=== PATIENT | female | born 1945 | race Caucasian/White ===

== ENCOUNTER → 2020-02-01 15:31 | Outpatient (CLI) | payer MEDICARE, SELFPAY ==
[2020-02-01 15:57] LABS: Basophils % 0.6 % (0.1-2.0); Eosinophils # 0.2 K/mm3 (0.0-0.4); Eosinophils % 2.3 % (0.1-12.0); Hematocrit 43.7 % (37.0-47.0); Hemoglobin 15.3 g/dL (12.2-16.2); Lymphocytes # 2.1 K/mm3 (0.7-4.5); Lymphocytes % 31.6 % (10-50); Mean Corpuscular HGB Conc 35.1 g/dL (31.8-35.4); Mean Corpuscular Hemoglobin 30.7 pg (27.0-31.2); Mean Corpuscular Volume 87.5 fl (81-99); Mean Platelet Volume 8.3 fl (7.4-10.4); Monocytes # 0.4 K/mm3 (0.1-1.0); Monocytes % 5.4 % (1.7-9.3); Platelet Count 245 K/mm3 (142-424); Red Cell Distribution Width 13.5 % (11.5-17.5); White Blood Count 6.7 K/mm3 (4.8-10.8)
[2020-02-03 22:36] LABS: Covid-19 Nasal PCR Sendout Lex Not Detected
== END ==
PROVIDERS: PCP Family Medicine; Visit Provider Nurse Practitioner Family
DX: Z03.818 Encounter for observation for suspected exposure to other biological agents ruled out (principal)
CPT/HCPCS: 36415; 85025; U0004

== ENCOUNTER → 2020-03-04 10:45 | Outpatient (CLI) | payer MEDICARE, SELFPAY ==
[2020-03-04 12:55] LABS: Coronavirus 19 IgG Antibody Negative (Negative); Coronavirus 19 IgM Antibody Negative (Negative)
== END ==
PROVIDERS: Visit Provider Internal Medicine Gastroenterology
DX: Z01.89 Encounter for other specified special examinations (principal); Z12.11 Encounter for screening for malignant neoplasm of colon
CPT/HCPCS: 36415; 86328

== ENCOUNTER 2020-03-06 08:05 | Day surgery (SDC) | payer MEDICARE, SELFPAY ==
[2020-03-01 10:56] VITALS: BMI 28.3
[2020-03-06] VITALS (7 sets, daily range): BP systolic 91–139; BP diastolic 52–94; PULSE 68–96; RESP 18; TEMP 36.4–36.6; O2SAT 94–99
--- NOTE | 2020-03-06 09:00 | HMH.ANESCL ---
[facility] Anesthesia Checklist - Structural Data Admitted From: Home Planned Operative Procedure/s: colonoscopy Consent for Planned Operative Procedure(s) Verified: Yes - Additional verifications Anesthesia Reactions: No Hx Blood Transfusions: No Blood Transfusion Reaction: No - Airway Assessment C-Spine Mobility Assessed: Yes TMJ Mobility Assessed: Yes Dentition: Partials - Neurological Assessment Level of Consciousness: Awake, Alert, Appropriate - Anesthesia Plan Anesthesia Risk discussed: Yes Anesthesia Plan: Verified ASA Class: II Anesthesia Type: MAC [facility] History I have reviewed the patient's past medical history: Yes Medical History: Reports:: Hyperlipidemia Denies:: Cancer, Diabetes Mellitus Type 1, Diabetes Mellitus Type 2, Internal Pacemaker, Lung Disease, MRSA, Seizures *Have you ever received a pneumonia vaccine?: Yes *Have you received a flu vaccine this season?: No Other Medical History: Denies: Blood Transfusion Reaction Anesthesia experience/problems:: none Other Surgeries: Yes: Appendectomy, Cholecystectomy, Colonoscopy, Dilation and Curettage. No: Pacemaker Amputation: No Fractures: No - *Social History Alcohol Intake: never Substance Use Type: denies use *Occupational Status:: retired Housing: house Household Members: spouse *Travel in the last 8 weeks: None Family Hx:: Unable to obtain
--- NOTE | 2020-03-06 09:22 | HMH.PROC ---
[facility] Procedure Note Procedure Note:: Colonoscopy Procedure Report: Colonoscopy with cold snare polypectomy Endoscopist: Willie Pugh II, MD Referring physician: Ilir Sandhu MD Date of Procedure: March 06, 2020 Equipment: Olympus 180 variable stiffness pediatric colonoscope Sedation: MAC sedation Indication: Mrs. Cifuentes is a 74-year-old female who is here for follow-up screening/surveillance colonoscopy secondary to a personal history of colon polyps. The patient had a colonoscopy 7 years ago and had a couple of polyps removed. Her last colonoscopy with ga in October 2017 revealed 9 colon polyps ranging in size from 5 to 19 mm all of which were adenomatous. She reports no abdominal pain, weight loss, change in her bowel habits or rectal bleeding. She reports no family history of colon cancer. She does take Metamucil daily. Procedure: Prior to the procedure, a history and physical exam was performed, and patient's medications and allergies were reviewed. The risks, benefits and alternatives of the sedation and procedure were discussed with the patient. All questions were answered and informed consent was obtained. The patient was brought to the procedure room. Patient identification and proposed procedure were verified by the physician and the nurse. The patient was placed in a left lateral decubitus position and the scope was passed under direct vision. Throughout the procedure, the patient's blood pressure, pulse, and oxygen saturations were monitored continuously. The colonoscopy was accomplished without difficulty. The patient tolerated the procedure well. Findings: On digital rectal examination there was normal rectal tone. There were no external hemorrhoids. The colonoscope was introduced through the anal canal to the rectum and advanced to the cecum. The ileocecal valve and appendiceal orifice were identified. The scope was advanced a short distance into the ileum which appeared grossly normal. The scope was then withdrawn into the colon. The cecum was normal. There were 3 polyps (ascending x1 (9 mm), transverse x1 (3 to 4 mm) and descending x1 (4 to 5 mm)) which were all removed via cold snare polypectomy. There were scattered diverticuli throughout the descending and sigmoid colon (LEFT colon). The rectum itself was normal. Upon retroflexion within the rectum there were grade 1 internal hemorrhoids. The preparation was excellent throughout with Rector Preparation Score of 9. The cecal time was 11 minutes. Impression: 1. Colonic polyps x3 2. Left-sided diverticulosis 3. Grade 1 internal hemorrhoids Plan: I will follow up the polyp pathology and recommend repeat colonoscopy again in 5 years based upon the polyp histology. I would encourage fiber supplementation on a long-term daily maintenance basis.
== END 2020-03-06 10:20 | disposition home or self-care (01) ==
PROVIDERS: PCP Family Medicine; Visit Provider Internal Medicine Gastroenterology
PROC: 0DJD8ZZ Inspection of Lower Intestinal Tract, Via Natural or Artificial Opening Endoscopic (ICD-10-PCS; CPT 45378; principal; 2020-03-06 09:00)
DX: Z12.11 Encounter for screening for malignant neoplasm of colon (principal); Z86.010 Personal history of colon polyps; K63.5 Polyp of colon; K57.30 Diverticulosis of large intestine without perforation or abscess without bleeding; K64.0 First degree hemorrhoids; E78.5 Hyperlipidemia, unspecified; Z90.49 Acquired absence of other specified parts of digestive tract
CPT/HCPCS: 45385; 88305

== ENCOUNTER → 2021-11-05 09:41 | Outpatient (CLI) | payer MEDICARE, SELFPAY ==
--- NOTE | 2021-11-05 09:48 | XR_ITS ---
FINAL REPORT CLINICAL HISTORY: PAIN IN LEFT KNEE FINDINGS: LEFT KNEE Three views of the left knee reveal no evidence of fracture or dislocation. The bony alignment is normal. There are mild degenerative changes. There is no evidence of joint effusion. No localized soft tissue abnormality is seen. IMPRESSION: Mild degenerative change with no acute abnormality identified. Reviewed, Interpreted and Dictated by Ernesto Parsons III, MD Transcribed by Felecia Anthony Authenticated and [facility]
== END ==
PROVIDERS: PCP Family Medicine; Visit Provider Family Medicine
DX: M25.562 Pain in left knee (principal)
CPT/HCPCS: 73562

== ENCOUNTER 2024-11-15 13:31 | Outpatient (CLI) | payer MEDICARE, SELFPAY ==
--- NOTE | 2024-11-15 13:34 | XR_ITS ---
FINAL REPORT TECHNIQUE: Bone densitometry calculations of the lumbar spine and bilateral hips were obtained. CLINICAL HISTORY: SCREENING COMPARISON: None FINDINGS: Using L1-4, the bone mineral density of the spine is 1.212 g/cm2, corresponding to T-score of 1.5. Using the left hip, the bone mineral density of the femoral neck is 0.701 g/cm2, corresponding to a T-score of -2.0. Using the right hip, the bone mineral density of the femoral neck is 0.738 g/cm?, corresponding to a T-score of -1.7. NOTE: T-score: Standard deviation compared with peak bone mass of young adult mean. *Following the recommendations of the International Society of Bone densitometry, classification of hip BMD is based on the lower of two T-scores; total hip or femoral neck. IMPRESSION: Diminished bone mineral density of the bilateral hips consistent with osteopenia. Normal bone mineral density of the lumbar spine. Reviewed, Interpreted and Dictated by Live Sepulveda MD Transcribed by Ani Hobbs Authenticated and [facility]
--- OUTSIDE RECORDS SUMMARY | 2024-11-15 13:34 | XMS_ITS ---
Author Organization Unknown TREATMENT PLAN [facility] Start Date Provider Encounter for Check-up [id number] [facility]
--- OUTSIDE RECORDS SUMMARY | 2024-11-15 13:34 | XMS_ITS | Data Portability ---
Author Organization [facility] ClinSIMONE fernandezS [facility] CLOSED Address [address] [place] [address] Care Team Providers Care Pot Washer Name Role Phone SIN WORTHY Primary Care Provider [phone] CHANDA GARCÍA Supply Chain Intern Assessment No assessment recorded. Plan of Treatment Reminders Order Date Submit Date Provider Last Modified By Organization Details Last Modified Time Details Appointments None record ed. Lab None record ed. Referral None record ed. Procedures None record ed. Surgeries None record ed. Imaging None record ed. Medication Orders None record ed. Patient TargetsNo targets recorded. Patient InstructionsNo instructions recorded. Reason for Referral None Reported. Medical Equipment None Reported. Allergies Allergen ID Allergen Name Allergen Category Reaction Reaction Severity Criticality Documentation Date Start Date Code Code System Note Provider Name and Address Organization Details Recorded Time 274722 Product containin g penicilli n (product) medicatio n Not available Not available Not available 10/09/2023 13421 8001 SNOMED [facility] 4 13:06:59 Medications Name Sig Start Date Stop Date Status Note LastModified by Organization Details LastModified Time atorvastatin active Not Available Not Available Not Available Zyrtec active Not Available Not Availa ble Not Available Vitals None Recorded Social History None recorded. Functional Status None recorded. Mental Status None recorded. Family History Nothing Reported. Medical History No medical history recorded. Gynecological HistoryNo gynecological history recorded. Obstetrics History GPAL:G 0 P 0 0 0 0 Past Encounters Encounter ID Performer Location Encounter Start Date Encounter Closed Date Diagnosis/Indication Diagnosis SNOMED-CT Code Diagnosis ICD10 Code Diagnosis Note [id number] CHANDA GARCÍA MD [address] [place] [address] 10/09/2023 12:53:54 10/10/2023 04:19:14 Seborrheic keratosis 644399662 L82.1 - Benign overgrowth s of skin- Hereditary Senile angioma 7728824 I 78.1 benign Solar lentigo 37185643 L 81.4 benign Health Concerns Section Related Observation LastModified by Organization Detai ls LastModified Time None Recorded Concern Status LastModified by Organization Details LastModified Time None Recorded Advance Directives Directive None Recorded Payers Insurance Date Sequence Insurance Name Policy Number Policy Junior Covered Member ID Junior Member ID Guarantor Name 10/09/2023 1 [employer] (MEDICARE REPLACEMENT/A DVANTAGE - PPO) Thais Cifuentes [id number] Thais Cifuentes Notes Date Note Type Note Provider Name and Address Organization Details Recorded Time 10/09/2023 text/html growing spot on L inframammary CHANDA GARCÍA MD [address] [place], [address], [facility] 10/09/2023 13:37:01 OBGyn Episode No OBEpisode recorded.
--- OUTSIDE RECORDS SUMMARY | 2024-11-15 13:34 | XMS_ITS | Clinical Summary ---
Author Organization [facility] Address [address] [place] [address] Care Team Providers Care Environmental Designer Name Role Phone Ilir Sandhu MD Primary Care Provider [phone] Social History Tobacco Use Types Packs/Day Years Used Date Smoking Tobacco: Never Assessed Comments Unknown Sex and Gender Information Value Date Recorded Sex Assigned at Female 12/01/2023 12:27 PM EDT Legal Sex Female 6:42 PM EDT Gender Identity Female 12/01/2023 12:27 PM EDT Sexual Orientation Not on file Plan of Treatment Upcoming Encounters Date Type Department Care Team (Late st Contact Info) Description 11/30/2024 9:00 AM EDT Ovarian Cancer Screening [facility] Gynecology [address] [place] [address] Health Maintenance Due Date Last Done Comments [facility]-Bone Density Scan 1947 [facility]-Depression Screening 1947 [facility]-Hepatitis C Screening 1945 [facility]-/Child/Adol SDOH Screenings 1947 [facility]- SDOH Screenings 1965 [facility]-Adult SDOH Screenings 1965 [facility]-DTaP,Tdap,and Td Vaccines (1 - Tdap) 1966 [facility]-Zoster Vaccines (1 of 2) 1997 [facility]-RSV Vaccine: 60+ Years or (1 - 1-dose 75+ series) 2022 [id number]-06 Vaccine ( season) 2024 02/09/2024, 02/14/2022, 10/10/2021 [facility]-Pneumococcal Vaccine: 50+ Years Completed 04/21/2017, 04/19/2016 [facility]-Breast Cancer Screening Discontinued 10/10/2023, 10/10/2023, 09/30/2022, Additional history exists [facility]-Influenza Vaccine Completed 02/09/2024 , 03/04/2023, 03/12/2022, Additional history exists HPV Vaccines Aged Out No longer eligi ble based on patient's age to complete this topic [facility]-HIB Vaccines Aged Out No longer e ligible based on patient's age to complete this topic [facility]-Hepatitis A Vaccines Aged Out No longer eligible based on patient's age to complete this topic [facility]-IPV Vaccines Aged Out No longer e ligible based on patient's age to complete this topic [facility]-Rotavirus Vaccines Aged Out No lo nger eligible based on patient's age to complete this topic Care Teams Environmental Designer Relationship Specialty Start Date End Date Ilir Sandhu MD [facility] [facility] [address] [place] [address] PCP - General 10/13/20
--- OUTSIDE RECORDS SUMMARY | 2024-11-15 13:34 | XMS_ITS | Patient Health Record ---
Author Organization [facility] Address [address] [place] [address] Care Team Providers Care Mathematics Technician Name Role Phone Kari Bustos Unavailable [phone] Allergies Allergen (clinical drug ingredient) Drug/Non Drug Allergy documented on EMR Reaction Allergy Type Onset Date Status PENICILLIN V POTASSI UM (PENICILLIN V POTASSIUM TAB rash Drug Allergy 03/01/2013 Active Results Component Value Reference Range Notes Pap w/reflex HPV Reviewed date:12/18/2023 03:03:29 PM Interpretation: Performing Lab:[facility] [place] [facility] [place] [facility] [place] CLIA ID [id number], [address], [address], [place] [address], Director - Ara Brown MD Notes/Report: Any Nucleic Acid Amplification testing is performed on the [email or web address] [place]. Diagnosis: Negative for intraepithelial lesion or malignancy. AP results FINAL .NET ARCHITECT CYTOLOGY REPORT DIAGNOSIS: Negative for intraepithelial lesion or malignancy. Specimen Adequacy: Satisfactory for interpretation with endocervical/transformat ion zone component present. Pertinent Clinical History/History of Surgery: Not provided Collection Technique: [place]-Spatula Results of Last Pap: negative LMP: unknown Date of Last Pap: Not provided Specimen Source: Cervical/Endocervical Specimen Type: ThinPrep Other Gynecological Patient Information: Menopausal Recommendation: Follow-up based on current clinical guidelines and/or clinical consideration. Screening note: This specimen has been analyzed by the [employer] Imaging System, an interactive computer system which assists the lab in screening of ThinPrep Pap Test slides. Following imaging, the slide was reviewed by a Sausage Grinder and/or Pathologist. Negative Educational Note: The pap screening test aids in the detection of premalignant and malignant states of the cervix. False positive and negative results may occur. It is not a diagnostic test. If abnormal cells are reported, follow-up based on current clinical guidelines and/or clinical consideration is recommended. Shivani Sheridan Sausage Grinder CPT Codes: 42374 ICD Codes: Z01.419 Reason For Referral No Information Medications Medication SIG (Take, Route, Frequency, Duration) Notes Start Date End Date Status ZyrTE Active Atorvastatin Calcium 40 MG Tablet Oral; Duration: 90 Active Social History Tobacco Use: Social History Observation Description Date Details (start date - stop date) Former Smoker NA - NA Sex Assigned At : Social History Observation Description Sex Assigned At Female Social History Drugs/Alcohol: Social Info Question Answer Notes Drugs Have you used drugs other than those for medical reasons in the past 12 months? No Alcohol Screen Did you have a drink containing alcohol in the past year? Yes How often did you have a drink containing alcohol in the past year? Monthly or less (1 point) How many drinks did you have on a typical day when you were drinking in the past year? 1 or 2 drinks (0 point) How often did you have 6 or more drinks on one occasion in the past year? Never (0 point) Points 1 Interpretation Negative Tobacco Use: Social Info Question Answer Notes Tobacco Use/Smoking Are you a former smoker Problems Problem Type SNOMED Code ICD Code Onset Dates Problem Status W/U Status Risk Notes Problem Gynecological examination normal (070207049092702 ) Cervical smear, as part of routine gynecological examination (Z01.419) 11/08/19 20 Active confirmed Annual without abnormal findings Problem Menopause (018448635) *Menopausal and female climacteric states (Code also, associated symptoms) (N95.1) Active confirmed Vital Signs Blood pressure diastolic 76 mm Hg 12/15/2023 Height 64 in 12/15/2023 Blood pressure systolic 128 mm Hg 12/15/2023 Weight 172.4 lbs 12/15/2023 BMI 29.59 kg/m2 12/15/2023 Encounters Encounter Location Date Provider Diagnosis [facility] [address] [place] [address] 12/08/2023 Kari Bustos [facility] [address] [place] [address] 12/15/2023 Kari Bustos Cervical smear, as p art of routine gynecological examination Z01.419 Assessments Encounter Date Diagnosis (ICD Code) Assessment Notes Treatment Notes Treatment Clinical Notes Section Notes 12/15/2023 Cervical smear, as part of routine gynecological examination (ICD-10 - Z01.419) Plan Of Treatment Next Appt Details Provider Name:Kari Bustos, 12/17/2024 10:15:00 AM, [address] [address], [place], [address], Insurance Providers Payer Name Payer Address Payer Phone Subscriber Number Group Number Insured Name Patient Relationship to Insured Coverage Start Date Coverage End Date [employer] [address] [address] [place], [place] [id number] [phone] [id number] Thais Cifuentes Self - patient is the insured 2 Medical (General) History Medical History History ICD Code hypercholeterolemia Surgical History Surgery Date(Month/Year) appy 1960; cholecystectomy 1979 Hospitalization History Reason Date(Month/Year) childbirth
== END 2024-11-15 23:59 | disposition home or self-care (01) ==
LOC: RAD 13:32
PROVIDERS: PCP Family Medicine; Visit Provider Family Medicine
DX: M85.852 Other specified disorders of bone density and structure, left thigh (principal); M85.851 Other specified disorders of bone density and structure, right thigh; M85.80 Other specified disorders of bone density and structure, unspecified site; Z13.9 Encounter for screening, unspecified
CPT/HCPCS: 77080

== ENCOUNTER 2025-01-06 07:28 | Day surgery (SDC) | payer MEDICARE, SELFPAY ==
[2024-12-28 10:19] VITALS: BMI 29.2
--- NOTE | 2025-01-06 07:14 | EXP.HP ---
History of Present Illness *Admission Date: 01/06/25 *History of present illness: Mrs. Cifuentes is a 79-year-old female who is here for diagnostic EGD and screening/surveillance colonoscopy. The patient does report dysphagia for the last couple of years that has progressively worsened. This is to solid foods. She does have a personal history of adenomatous colon polyps. Her colonoscopy 12 years ago revealed a couple of polyps which were removed. Her colonoscopy in October 2017 revealed 9 polyps ranging in size from 5 to 19 mm (tubular adenomas x 9) which were removed. Her last colonoscopy with me in March 2020 revealed 3 polyps (tubular adenomas x 3) which were removed. The examination is deemed medically necessary for EGD and surveillance colonoscopy. The patient has been seen, interviewed and examined prior to the procedure by both myself and the anesthesia provider. [facility] Disclaimer: The information contained in this section may have been updated after the patient was seen, as this information can be updated by other users. Medical History Hearing loss Allergies High cholesterol Surgical History History of appendectomy History of cholecystectomy Family History Mother Hyperlipidemia Family/Other Diabetes Social History Smoking Status: Former smoker tobacco type: cigarettes packs per day: 1 pack-years: 25 quit status: quit date established alcohol intake: never substance use type: denies use current occupational status: retired Travel in the last 8 weeks?: None household members: spouse housing: house current occupational exposures/hazards: No caffeine: Yes Have you lived/traveled outside US in past 30 days?: No Contact w/someone who lives/traveled outside US past 30 days?: No Exposure to someone with infectious disease in past 14 days?: No Do you have a fever (greater than 100.4 F or 38 C)?: No Have you tested positive for COVID-19?: No Exposed to someone with COVID-19 in past 14 days?: No Do you have a sore throat?: No Do you have a cough?: No Do you have any weakness?: No Do you have any diarrhea?: No Are you experiencing any unusual bleeding?: No Do you have any muscle aches/pain?: No Do you have any abdominal pain?: No Are you experiencing loss of taste or smell?: No Other Medical History Have you received the Flu Vaccine for this season: No Have you received the Pneumonia Vaccine: Yes Review of Systems Review of Systems Review of systems (narrative): Negative *Cardiovascular Comments: Negative *Gastrointestinal Comments: Negative *Genitourinary Comments: Negative *Musculoskeletal Comments: Negative *Neurologic Comments: Negative Meds Home Medications and Allergies Home Medications ?Medication ?Instructions ?Recorded ?Confirmed ?Type atorvastatin 40 mg tablet 40 mg PO DAILY Cholesterol 11/25/17 01/04/25 History cetirizine 10 mg tablet 10 mg PO DAILY allergies 03/01/20 01/04/25 History sodium chloride 5 % eye drops 1 drp Eye-Both ONCE 01/04/25 01/04/25 History calcium 315 mg (as 1 tab PO BID 01/06/25 01/06/25 History citrate)-vitamin D3 6.25 mcg (250 unit) tablet (Citracal + Vitamin D Maximum) New Prescriptions to Start Prescriptions: Allergies Allergy/AdvReac Type Severity Reaction Status Date / Time Penicillins Allergy Mild Rash Verified 01/06/25 07:49 Exam *Routine HEENT Exam Head: Present normocephalic Eye: Present EOMI and PERRL ENT: Present mucous membranes moist *Routine Neck Exam Neck: Present supple *Routine Respiratory Exam Respiratory: Present CTA bilaterally *Routine Cardiovascular Exam Cardiovascular: Present RRR *Routine Abdominal Exam Abdominal: Present soft and normoactive bowel sounds; Absent tenderness *Routine Rectal Exam Rectal:: deferred *Routine Genitalia Exam Genitalia:: deferred *Routine Extremities Exam Extremities: Absent cyanosis, clubbing or edema *Routine Skin Exam Skin: Present warm; Absent rash *Routine Neurological Exam Neurological: Present alert and oriented X3 Assessment and Plan *Assessment and plan (1) Personal history of adenomatous and serrated colon polyps: Status: Acute Category: Medical Code(s): Z86.0101 - Personal history of adenomatous and serrated colon polyps (2) Dysphagia: Status: Acute Category: Medical Code(s): R13.10 - Dysphagia, unspecified Plan A/P: 1. Dysphagia for upper endoscopy and personal history of adenomatous colon polyps for colonoscopy is the preprocedural diagnosis. The patient will be anesthetized/sedated using MAC sedation. The patient has been seen and examined. Cardiac and lung assessment prior to the examination is stable. Proceed with planned EGD and screening/surveillance colonoscopy.
[2025-01-06 07:54] VITALS: BP 168/89; PULSE 86; RESP 19; TEMP 36.3; O2SAT 94
[2025-01-06] MEDS: LACTATED RINGERS 1000ML 1,000 ML 50 ML IV (08:30)
--- NOTE | 2025-01-06 08:34 | P.PNANES_ITS ---
[facility] Disclaimer: The information contained in this section may have been updated after the patient was seen, as this information can be updated by other users. Medical History Hearing loss Allergies High cholesterol Surgical History History of appendectomy History of cholecystectomy Family History Mother Hyperlipidemia Family/Other Diabetes Social History Smoking Status: Former smoker tobacco type: cigarettes packs per day: 1 pack- years: 25 quit status: quit date established alcohol intake: never substance use type: denies use current occupational status: retired Travel in the last 8 weeks?: None household members: spouse housing: house current occupational exposures/hazards: No caffeine: Yes Have you lived/traveled outside US in past 30 days?: No Contact w/someone who lives/traveled outside US past 30 days?: No Exposure to someone with infectious disease in past 14 days?: No Do you have a fever (greater than 100.4 F or 38 C)?: No Have you tested positive for COVID-19?: No Exposed to someone with COVID-19 in past 14 days?: No Do you have a sore throat?: No Do you have a cough?: No Do you have any weakness?: No Do you have any diarrhea?: No Are you experiencing any unusual bleeding?: No Do you have any muscle aches/pain?: No Do you have any abdominal pain?: No Are you experiencing loss of taste or smell?: No [facility] Anesthesia Checklist Patient Identification Patient Identification: Arm Band and Verbal (Name & ) Structural Data Admitted From: Home Planned Operative Procedure/s: EGD and colonscopy Consent for Planned Operative Procedure(s) Verified: Yes Verified Documents: Surgical Consent and History and Physical NPO Status Verified Time NPO: 00:00 Additional verifications Anesthesia Reactions: No Hx Blood Transfusions: No Blood Transfusion Reaction: No Airway Assessment Mallampati Score:: Class II Dentition: Good Dentition Neurological Assessment Level of Consciousness: Awake, Alert and Appropriate Hx Seizures: No Anesthesia Plan Anesthesia Risk discussed: Yes Anesthesia Plan: Verified ASA Class: II Anesthesia Type: MAC
--- NOTE | 2025-01-06 09:02 | HMH.PROCNOTE ---
[facility] Procedure Note Date: 01/06/25 Time: 09:08 Procedure Note:: Upper Endoscopy Procedure Report: Esophagogastroduodenoscopy with cold biopsies and TTS balloon dilation Endoscopost: Willie Pugh II, MD Referring Physician: Ilir Sandhu MD Date of Procedure: January 06, 2025 Equipment: Olympus [id number]-1100 standard upper endoscope Sedation: MAC sedation Indications: Mrs. Cifuentes is a 79-year-old female who is here for diagnostic upper endoscopy secondary to progressive dysphagia to solids. She has had this for a couple of years but this has gradually worsened. This occurs with solid foods such as breads and meats. She formerly could drink fluids and this would pass. Now, she will sometimes have to regurgitate food content. She reports no heartburn or reflux. She does get some minor belching. She reports no dyspepsia or bloating. She has had no weight loss. This is her first upper endoscopy. Procedure: Prior to the procedure, a history and physical exam was performed, and patient's medications and allergies were reviewed. The risks, benefits and alternatives of the sedation and procedure were discussed with the patient. All questions were answered and informed consent was obtained. The patient was brought to the procedure room. Patient identification and proposed procedure were verified by the physician and the nurse. The patient was placed in a left lateral decubitus position and the scope was passed under direct vision. Throughout the procedure, the patient's blood pressure, pulse, and oxygen saturations were monitored continuously. The upper GI endoscopy was accomplished without difficulty. The patient tolerated the procedure well. Findings: The scope was passed directly into the upper esophagus and advanced to the fourth portion of duodenum and proximal jejunum. A cold biopsy was taken from the second portion of the duodenum for the disaccharidase assay. The proximal jejunum, post bulbar duodenum, ampulla and duodenal bulb were normal with normal mucosa and conniventes. The scope was withdrawn through a normal duodenal bulb and pylorus into the stomach. There was minimal antral gastropathy. There was moderate chronic gastritis of the body and fundus and proximal stomach. Cold biopsies were taken from the lesser and greater curvature. Upon retroflexion there was no hiatal hernia. The scope was then withdrawn into the esophagus. There was a distal esophageal ring. There was no evidence of reflux esophagitis or Hardwick's. There was no corrugation or furrowing. The entire esophagus was dilated to 60 [place]/20 mm with a TTS hydrostatic balloon. There was fracturing of the ring. There was mild resistance at the cricopharyngeus. The remainder of the esophageal mucosa was normal. Impression: 1. Distal esophageal ring status post dilation to 20 mm 2. Moderate chronic gastritis Plan: I will discuss the findings with the patient and family. I will follow-up the biopsies and disaccharidase assay. I will proceed with screening/surveillance colonoscopy.
--- NOTE | 2025-01-06 09:12 | HMH.PROCNOTE ---
[facility] Procedure Note Date: 01/06/25 Time: 09: Procedure Note:: Colonoscopy Procedure Report: Colonoscopy with cold snare polypectomy Endoscopist: Willie Pugh II, MD Referring physician: Ilir Sandhu MD Date of Procedure: January 06, 2025 Equipment: Olympus [id number] adult colonoscope Sedation: MAC sedation Indication: Mrs. Cifuentes is a 79-year-old female who is here for surveillance/screening colonoscopy secondary to a personal history of adenomatous colon polyps. The patient did have a colonoscopy 12 years ago at which time a couple of polyps were removed. Her colonoscopy with me in October 2017 revealed 9 polyps (tubular adenomas x 9?ranging in size from 5 to 19 mm) which were removed. Her last colonoscopy with me in March 2020 revealed 3 polyps (tubular adenomas x 3 ranging in size from 3 to 9 mm) which were removed. She reports no abdominal pain, weight loss, change in her bowel habits or rectal bleeding. She reports no family history of colon cancer. Procedure: Prior to the procedure, a history and physical exam was performed, and patient's medications and allergies were reviewed. The risks, benefits and alternatives of the sedation and procedure were discussed with the patient. All questions were answered and informed consent was obtained. The patient was brought to the procedure room. Patient identification and proposed procedure were verified by the physician and the nurse. The patient was placed in a left lateral decubitus position and the scope was passed under direct vision. Throughout the procedure, the patient's blood pressure, pulse, and oxygen saturations were monitored continuously. The colonoscopy was accomplished without difficulty. The patient tolerated the procedure well. Findings: On digital rectal examination there was normal rectal tone. There were no external hemorrhoids. The colonoscope was introduced through the anal canal to the rectum and advanced to the cecum. The ileocecal valve and appendiceal orifice were identified. The scope was advanced a short distance into the ileum which appeared grossly normal. The scope was then withdrawn into the colon. There were 5 diminutive polyps (cecum x 1 (4 mm) and ascending x 4 (3, 4, 4 and 5 mm)). These were all removed via cold snare polypectomy. The remaining cecum, ascending and transverse colon and mucosa were grossly normal. There were scattered diverticuli throughout the descending and sigmoid colon (LEFT colon). The rectum itself was normal. Upon retroflexion within the rectum there were grade 1-2 internal hemorrhoids. The preparation was excellent throughout with [place] Preparation Score of 9. The cecal time was 13 minutes. Impression: 1. Diminutive colonic polyps x 5 2. Left-sided diverticulosis 3. Grade 1-2 internal hemorrhoids Plan: I will follow-up the polyp histology and recommend repeat surveillance colonoscopy again in 3 years. I would continue psyllium fiber supplementation on a maintenance basis.
[2025-01-06 09:30] VITALS: BP 119/69; PULSE 78; RESP 18; TEMP 36.4; O2SAT 98
[2025-01-06 09:40] VITALS: BP 140/89; PULSE 76; RESP 76; O2SAT 99
[2025-01-06 09:50] VITALS: BP 150/81; PULSE 81; RESP 16; O2SAT 100
[2025-01-06 10:00] VITALS: BP 136/90; PULSE 71; RESP 18; O2SAT 96
[2025-01-11 14:11] LABS: Interpretation Notes (.); Lactase 27.07 (>/= 14.0); Maltase 213.08 (>/= 110.0); Palatinase 16.17 (>/= 8.5); Reference Notes (.); Sucrase 48.17 (>/= 25.0)
== END 2025-01-06 10:00 | disposition home or self-care (01) ==
PROVIDERS: PCP Family Medicine; Visit Provider Internal Medicine Gastroenterology
PROC: 0DJ08ZZ Inspection of Upper Intestinal Tract, Via Natural or Artificial Opening Endoscopic (ICD-10-PCS; CPT 45378; principal; 2025-01-06 09:00)
DX: Z12.11 Encounter for screening for malignant neoplasm of colon (principal); D12.2 Benign neoplasm of ascending colon; D12.0 Benign neoplasm of cecum; Z86.0101 Personal history of adenomatous and serrated colon polyps; K29.50 Unspecified chronic gastritis without bleeding; B96.81 Helicobacter pylori [H. pylori] as the cause of diseases classified elsewhere; K57.30 Diverticulosis of large intestine without perforation or abscess without bleeding; K64.0 First degree hemorrhoids; K64.1 Second degree hemorrhoids; Z87.891 Personal history of nicotine dependence; Z88.1 Allergy status to other antibiotic agents; Z79.899 Other long term (current) drug therapy
CPT/HCPCS: 43239; 43249; 45385; 82657; C1726; J2003; J2704; J7120

== ENCOUNTER 2025-05-04 10:17 | Outpatient (CLI) | payer MEDICARE, SELFPAY ==
--- OUTSIDE RECORDS SUMMARY | 2025-05-04 10:21 | XMS_ITS | Clinical Summary ---
Author Organization [facility] Address [address] 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 Name Role Phone Ilir Sandhu MD Primary Care Provider [phone] Social History Tobacco Use Types Packs/Day Years Used Date Smoking Tobacco: Never Assessed Comments Unknown Sex and Gender Information Value Date Recorded Sex Assigned at Female 12/01/2023 12:27 PM EDT Legal Sex Female 6:42 PM EDT Gender Identity Female 12/01/2023 12:27 PM EDT Sexual Orientation Not on file Plan of Treatment Upcoming Encounters Date Type Department Care Team (Late st Contact Info) Description 12/14/2025 9:00 AM EDT Ovarian Cancer Screening [facility] Gynecology [address] [facility] [place] [address] Health Maintenance Due Date Last Done Comments [facility]-Bone Density Scan 1945 [facility]-Depression Screening 1945 [facility]-Hepatitis C Screening 1945 [facility]-Medicare Annual Wellness (AWV) 1945 [facility]-Infant/Child/Adol SDOH Screenings 1945 [facility]- SDOH Screenings 1965 [facility]-Adult SDOH Screenings 1965 [facility]-DTaP,Tdap,and Td Vaccines (1 - Tdap) 1966 [facility]-Zoster Vaccines (1 of 2) 1997 [facility]-RSV Vaccine: 60+ Years or (1 - 1-dose 75+ series) 2022 [id number] Vaccine ( - season) 2025 02/09/2024, 02/14/2022, 10/10/2021 [facility]-Influenza Vaccine (#1) 01/31/202502/08, 03/04/2023, 03/12/2022, Additional history exists [facility]-Pneumococcal Vaccine: 50+ Years Completed 04/21/2017, 04/19/2016 [facility]-Breast Cancer Screening Discontinued 10/10/2023, 10/10/2023, 09/30/2022, Additional history exists HPV Vaccines Aged Out [...] on patient's age to complete this topic Insurance [facility] MEDIC[facility] Care Teams Gear Cutter Relationship Specialty Start Date End Date Ilir Sandhu MD [address] [facility] [address] [place] [id number] PCP - General 10/13/20
--- OUTSIDE RECORDS SUMMARY | 2025-05-04 10:21 | XMS_ITS | Clinical Summary ---
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 Not on file 01/2023 Does Anyone Keep You from Co ntacting Others or Doint Things Outside the Home? Not on file 03/10/2023 Physical Sign of Abuse Present Not on file 1 Housing Stability Answer Date Recorded Current Living Arrangements Not on file 01/2023 Potentially Unsafe Housing Conditions Not on brett e 03/10/2023 Family and Community Support Answer Pepe e Recorded Help with Day-to-Day Activities Not on file 03/10/2023 Lonely or Isolated Not on file 03/10/2023 Employment Answer Date Recorded Do you want help finding or keeping work or a nahomi b? Not on file 03/10/2023 Disabilities Answer Date Recorded Concentrating, Remembering, or Making Decisions Difficulty Not on file 03/10/2023 Doing Errands Independently Difficulty Not on fi le 03/10/2023 Education Answer Date Recorded Help with school or training? Not on file Preferred Language Not on file 03/10/2023 Comments No Sex and Gender Information Value Date Recorded Sex Assigned at Not on file Legal Sex Female 11:01 AM EDT Gender Identity Not on file Sexual Orientation Not on file Plan of Treatment Health Maintenance Due Date Last Done Comments ANNUAL WELLNESS VISIT 1945 DXA SCAN 1945 HEPATITIS C SCREENING 1945 ZOSTER VACCINE (1 of 2) 1997 RSV Vaccine - Adults (1 - 1- dose 75+ series) 2022 INFLUENZA VACCINE 12/31/2024 02/09/2024, , 03/12/2022, Additional history exists COVID-19 Vaccine (4 - 2023-2 5 season) 2025 02/09/2024, 02/14/2022, 10/10/2021 TDAP/TD VACCINES (2 - Td or Tdap) 11/30/2034 025 Pneumococcal Vaccine 50+ Completed 04/21/2017, 04/02 MAMMOGRAM Discontinued 12/31/2024, 09/30, 09/30/2022, Additional history exists Procedures Procedure Name Priority Date/Time Associated Diagnosis Comments MAMMO SCREENING DIGITAL TOMOSYNTHESIS BILATERAL W CAD Routine 12/31/2024 4:25 PM EDT Encounter for screening mammogram for breast cancer from Last 3 Months or Most Recently Relevant to Health Maintenance Results * Mammo Screening Digital Tomosynthesis Bilateral With CAD (12/31/2024 4:25 PM EDT) Anatomical Region Laterality Modality Breast N/A Mammography 01/04/2025 9:14 AM EDT Impressions 01/04/2025 9:17 AM EDT No mammographic findings suspicious for malignancy. RECOMMENDATION: Continue annual screening mammography. BI-RADS CATEGORY 1, NEGATIVE. CAD was utilized. The standard false-negative rate of mammography is between 10% and 25%. Complex patterns or increased breast density will markedly elevate the false-negative rate of mammography. A letter, in lay terminology, with the results of this exam will be mailed to the patient. 01/04/2025 9:[address] Cherelle Gomez MD on Narrative 01/04/2025 9:17 AM EDT BILATERAL SCREENING MAMMOGRAM WITH TOMOSYNTHESIS: HISTORY: The patient has no personal history or significant family history of breast cancer and no focal breast complaints at the time of screening mammography. TECHNIQUE: Bilateral CC and MLO low dose, full field digital mammographic images were obtained with tomosynthesis. COMPARISON: 10/10/2023, 09/30/2022, 02/01/2021, 01/25/2020, 06/05/2018, 05/27/2017, 05/24/2016 FINDINGS: The breast tissue is almost entirely fatty in density. The fibroglandular pattern is stable. There are no suspicious masses, worrisome calcifications, nonsurgical areas of architectural distortion, or other secondary signs of malignancy. 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
== END 2025-05-04 23:59 | disposition home or self-care (01) ==
LOC: LAB 10:17
PROVIDERS: PCP Family Medicine; Visit Provider Nurse Practitioner Family
DX: K29.70 Gastritis, unspecified, without bleeding (principal); B96.81 Helicobacter pylori [H. pylori] as the cause of diseases classified elsewhere
CPT/HCPCS: 83013; 83014